=== PATIENT | female | born 1985 ===

== ENCOUNTER → 2021-05-08 09:32 | Outpatient (CLI) | payer SELFPAY ==
[2021-05-08 12:01] LABS: Urine N gonorrhoeae NOT DETECTED
[2021-05-08 12:26] LABS: Urine Chlamydia NOT DETECTED
== END ==
PROVIDERS: Referring Provider Nurse Practitioner Family; Visit Provider Nurse Practitioner Family
DX: Z13.9 Encounter for screening, unspecified (principal); N34.3 Urethral syndrome, unspecified; N89.8 Other specified noninflammatory disorders of vagina
CPT/HCPCS: 87086; 87210; 87491; 87591

== ENCOUNTER → 2021-07-21 07:28 | Outpatient (CLI) | payer OTHER, SELFPAY ==
[2021-07-21 07:58] LABS: COVID19 -Nasal RAPID Negative (Negative)
== END ==
PROVIDERS: Visit Provider Nurse Practitioner Family
DX: Z20.822 Contact with and (suspected) exposure to COVID-19 (principal)
CPT/HCPCS: 87635

== ENCOUNTER → 2021-10-06 13:23 | Outpatient (CLI) | payer OTHER, SELFPAY ==
[2021-10-06 14:07] LABS: Bacteria Urine Occasional (0-1); RBC Urine 1-5/HPF (0-5/HPF); WBC Urine 0-1/HPF (0-5/HPF)
[2021-10-07 16:30] LABS: Appearance Urine UA CLEAR; Bilirubin Urine UA NEGATIVE (NEGATIVE); Color Urine UA YELLOW; Glucose Urine UA NEGATIVE (Negative); Ketones Urine UA NEGATIVE (NEGATIVE); Leukocyte Esterase Urine UA NEGATIVE (NEGATIVE); Nitrite Urine UA NEGATIVE (Negative); Occult Blood Urine UA NEGATIVE (Negative); Protein Urine UA NEGATIVE (Negative); Urobilinogen Urine UA 0.2 E.U./dL (0.2)
== END ==
PROVIDERS: PCP Obstetrics & Gynecology; Referring Provider Obstetrics & Gynecology; Visit Provider Obstetrics & Gynecology
DX: O26.893 Other specified pregnancy related conditions, third trimester (principal); R30.0 Dysuria
CPT/HCPCS: 81003; 81015; 87086

== ENCOUNTER → 2022-10-11 12:22 | Outpatient (CLI) | payer OTHER, MEDICAID, SELFPAY ==
--- NOTE | 2022-10-11 12:23 | DI.US.S_ITS ---
PROCEDURE: US OB <= 14 WEEKS FETUS INDICATIONS: DATES OUTSIDE/PRIOR DATING DATA: Last menstrual period (LMP): 07/30/2022. LMP-based estimated date of delivery (ARA): 05/06/2023. First dating scan (date and location): Today's exam. Estimated date of delivery (ARA) from first dating scan: 05/09/2023. The calculations are made using the clinical ARA of 05/06/2023. TECHNIQUE: Real-time scanning was performed of the fetus and maternal pelvic organs, with image documentation. COMPARISON: None. FINDINGS: Embryo: Present, pole measuring 3.2 cm, corresponding to 10 weeks 0 days. Heart rate: 163 beats per minute Maternal organs: Ovaries not visualized due to overlying bowel gas. IMPRESSION: Single living intrauterine at 10 weeks 0 days, ARA of 05/09/2023. Dating is concordant with clinical dating. We strive to produce accurate, complete, and clear reports of imaging services. To assist us in improving patient care, this report was composed using standard report templates and voice recognition software. Therefore, it may contain abnormal punctuation, insertions and/or omissions. Occasional wrong-word or sound-alike substitutions may occur. Though we review the report and make efforts to correct it, we do recommend that the report be read carefully in proper context to recognize any text inaccuracies. Dictated by: Vernon Kuo M.D. on 10/11/2022 at 13:27 Approved by: Vernon Kuo M.D. on 10/11/2022 at 13:28
== END ==
PROVIDERS: PCP Obstetrics & Gynecology; Referring Provider Obstetrics & Gynecology; Visit Provider Obstetrics & Gynecology
DX: Z34.81 Encounter for supervision of other normal pregnancy, first trimester (principal); Z3A.10 10 weeks gestation of pregnancy
CPT/HCPCS: 76801

== ENCOUNTER → 2022-10-25 10:54 | Outpatient (CLI) | payer OTHER, MEDICAID, SELFPAY ==
[2022-10-25 12:51] LABS: Add Manual Diff / Slide Review NO; Basophils Absolute Auto 0 /uL (0-100); Basophils Percent Auto 0.2 % (0-2); Eosinophils Absolute Auto 100 /uL (0-450); Eosinophils Percent Auto 0.7 % (2-4); Hematocrit 35.7 % (36-46); Hemoglobin 12.3 g/dL (12.0-16.0); Lymphocytes Absolute Auto 2900 /uL (1100-4500); Lymphocytes Percent Auto 34.6 % (25-40); Mean Corpuscular HGB Conc 34.5 % (30-36); Mean Corpuscular Hemoglobin 32.1 PG (26-34); Monocytes Absolute Auto 400 /uL (0-900); Monocytes Percent Auto 5.4 % (3-14); Neutrophils Absolute Auto 4900 /uL (1500-7000); Neutrophils Percent Auto 59.1 % (50-75); Platelet Count 218 X10^3/uL (150-400); Red Blood Cell Count 3.83 X10^6/uL (4.0-5.2); Red Cell Distribution Width 13.6 % (11.6-14.8); White Blood Cell Count 8.4 X10^3/uL (4.5-11.0)
[2022-10-25 14:32] LABS: Urine N gonorrhoeae NOT DETECTED
[2022-10-25 14:33] LABS: Urine Chlamydia NOT DETECTED
[2022-10-26 04:10] LABS: RPR Screen Non Reactive (Non Reactive)
[2022-10-26 11:10] LABS: Varicella IgG Antibody 1385 index (Immune >165)
[2022-10-26 18:09] LABS: Hepatitis B Surface Antigen NEGATIVE s/c (NEGATIVE); Rubella Antibody IgG 14.8 IU/mL (>15)
[2022-10-26 18:52] LABS: HIV 1 & 2 Ab/Ag 4th Gen Combo NEGATIVE (NEGATIVE); Hep C Virus Ab w/Reflex Quant NEGATIVE s/c (NEGATIVE)
[2022-10-27 08:03] LABS: Miscellaneous to LabCorp NATERA KIT
== END ==
PROVIDERS: PCP Student in an Organized Health Care Education/Training Program; Referring Provider Obstetrics & Gynecology; Visit Provider Obstetrics & Gynecology
DX: O09.521 Supervision of elderly multigravida, first trimester (principal); Z3A.12 12 weeks gestation of pregnancy
CPT/HCPCS: 36415; 80055; 86787; 86803; 86850; 86900; 86901; 87086; 87389; 87491; 87591

== ENCOUNTER → 2022-11-30 10:02 | Outpatient (CLI) | payer OTHER, MEDICAID, SELFPAY ==
[2022-12-02 18:42] LABS: Gest Age on Col Date 17.6 weeks (.); Insulin Dep Diabetes No (.); OSBR Risk 1IN 10000 (.); Results Report (.); Test Results *Screen Negative* (.)
== END ==
PROVIDERS: PCP Student in an Organized Health Care Education/Training Program; Referring Provider Obstetrics & Gynecology; Visit Provider Obstetrics & Gynecology
DX: Z34.81 Encounter for supervision of other normal pregnancy, first trimester (principal); Z3A.17 17 weeks gestation of pregnancy
CPT/HCPCS: 36415; 82105

== ENCOUNTER → 2022-12-08 12:16 | Outpatient (CLI) | payer OTHER, MEDICAID, SELFPAY ==
--- NOTE | 2022-12-08 12:17 | DI.US.S_ITS ---
PROCEDURE: US OB LIMITED INDICATIONS: ABDOMINAL PAIN, LEFT SIDED UTERINE PAIN OUTSIDE/PRIOR DATING DATA: Last menstrual period (LMP): 07/30/2022. LMP-based estimated date of delivery (ARA): 05/06/2023. First dating scan (date and location): 10/11/2022. Estimated date of delivery (ARA) from first dating scan: 05/09/2023. TECHNIQUE: Real-time scanning was performed of the fetus, with image documentation and biometric measurements. Endovaginal scanning: Not performed COMPARISON: [facility], , US OB <= 14 WEEKS FETUS, 10/11/2022, 12:28. FINDINGS: General: A single living intrauterine gestation is present. Presentation: Variable. Placenta: Placental position is fundal/posterior , without previa. Amniotic fluid index: 14.3 cm, normal range is 5-24 cm. Single deepest vertical pocket is 4.2 cm. heart rate: 160 beats per minute. Maternal cervical canal: 4.7 cm long. Normal lower limit is 2.5 cm. biometrics: Biparietal diameter: 4.3 centimeters 19 weeks 1 day Head circumference: 15.2 centimeters 18 weeks 1 day Abdominal circumference: 13.8 centimeters 18 weeks 1 day Femur length: 2.8 centimeters 18 weeks 4 days estimated gestational age: 18 weeks 5 days Composite gestational age from present scan: 18 weeks 5 days Estimated weight and percentile: 260 grams, 53rd percentile Other: Focal thickening of the anterior uterine wall, measured on grayscale images with dimensions of 5.6 x 3.3 x 4.0 centimeters. Internal vascularity present on Doppler images. IMPRESSION: 1. Single living intrauterine . 2. Cervix is long and closed. Amniotic fluid index of 14.3 centimeters. 3. Focal thickening of the anterior uterine wall may represent a uterine contraction, but was not observed to resolve during the examination. A fibroid could appear similarly, however this finding was not identified on the 1st trimester comparison exam. Clinical correlation for placental abruption may be helpful, however presence of internal vascularity within this finding makes etiologies such as clot less likely and the finding appears largely distant from the placenta on provided images. Imaging follow-up could be obtained as clinically indicated. We strive to produce accurate, complete, and clear reports of imaging services. To assist us in improving patient care, this report was composed using standard report templates and voice recognition software. Therefore, it may contain abnormal punctuation, insertions and/or omissions. Occasional wrong-word or sound-alike substitutions may occur. Though we review the report and make efforts to correct it, we do recommend that the report be read carefully in proper context to recognize any text inaccuracies. Dictated by: Margarito Dorsey M.D. on 12/08/2022 at 15:00 Approved by: Margarito Dorsey M.D. on 12/08/2022 at 15:14
== END ==
PROVIDERS: PCP Student in an Organized Health Care Education/Training Program; Referring Provider Obstetrics & Gynecology; Visit Provider Obstetrics & Gynecology
DX: O99.891 Other specified diseases and conditions complicating pregnancy (principal); R10.9 Unspecified abdominal pain; Z3A.18 18 weeks gestation of pregnancy
CPT/HCPCS: 76815

== ENCOUNTER → 2022-12-20 10:26 | Outpatient (CLI) | payer OTHER, MEDICAID, SELFPAY ==
--- NOTE | 2022-12-20 10:26 | DI.US.S_ITS ---
PROCEDURE: US OB >= 14 WEEKS FETUS INDICATIONS: 20 week anatomy scan OUTSIDE/PRIOR DATING DATA: Last menstrual period (LMP): 07/30/2022. LMP-based estimated date of delivery (ARA): 05/06/2023. First dating scan (date and location): 10/11/2022. Estimated date of delivery (ARA) from first dating scan: 05/09/2023. The calculations are made using the working ARA of 05/09/2023. TECHNIQUE: Real-time scanning was performed of the fetus, with image documentation and biometric measurements. COMPARISON: [facility], OB LIMITED, 12/08/2022, 12:32. [facility], OB <= 14 WEEKS FETUS, 10/11/2022, 12:28. FINDINGS: General: A single living intrauterine gestation is present. Presentation: Breech. Placenta: Placental position is posterior fundal , without previa. Amniotic fluid index: 13.5 cm, normal range is 5-24 cm. Single deepest vertical pocket is 6.5 cm. heart rate: 158 beats per minute. Maternal cervical canal: 4.2 cm long. Normal lower limit is 2.5 cm. There is a 5.1 x 4.6 x 4.5 cm fibroid in the anterior uterine wall. biometrics: Biparietal diameter: 20 weeks 0 day Head circumference: 20 weeks 1 day Abdominal circumference: 19 weeks 5 days Femur length: 20 weeks 1 day Clinically estimated gestational age: 20 weeks 3 days Composite gestational age from present scan: 20 weeks 0 day Estimated weight and percentile: 320 g; 20%. Anatomic survey: Neuro: Ventricles are non-dilated at less than 10 mm. Cisterna magna is normal at 3-11 mm. Cerebellum is normal in size and morphology. Nuchal skin fold: Normal at less than 6 mm between 14-21 weeks gestational age. Face: Nose and lips, facial profile are normal. Spine: No evidence for spina bifida. Heart: 4-chambered heart is present, with normal ventricular outflow tracts. Diaphragm: Diaphragm is intact. Stomach: Left-sided stomach is present. Kidneys: No hydronephrosis. Normal is less than 5 mm in 2nd trimester, less than 7 mm in 3rd trimester. Cord: 3-vessel cord has orthotopic insertion. Bladder: Normal in size. Extremities: All 4 extremities identified. IMPRESSION: 1. A single living intrauterine gestation with appropriate interval growth. 2. Normal anatomic survey. 3. A 5.1 x 4.6 x 4.5 cm uterine fibroid in the anterior uterine wall. We strive to produce accurate, complete, and clear reports of imaging services. To assist us in improving patient care, this report was composed using standard report templates and voice recognition software. Therefore, it may contain abnormal punctuation, insertions and/or omissions. Occasional wrong-word or sound-alike substitutions may occur. Though we review the report and make efforts to correct it, we do recommend that the report be read carefully in proper context to recognize any text inaccuracies. Dictated by: Bhupinder Dale M.D. on 12/22/2022 at 12:13 Approved by: Bhupinder Dale M.D. on 12/22/2022 at 12:19
== END ==
PROVIDERS: PCP Student in an Organized Health Care Education/Training Program; Referring Provider Obstetrics & Gynecology; Visit Provider Obstetrics & Gynecology
DX: O34.12 Maternal care for benign tumor of corpus uteri, second trimester (principal); D25.9 Leiomyoma of uterus, unspecified; Z3A.20 20 weeks gestation of pregnancy
CPT/HCPCS: 76811

== ENCOUNTER → 2023-01-24 08:27 | Outpatient (CLI) | payer OTHER, MEDICAID, SELFPAY ==
[2023-01-24 11:03] LABS: Hematocrit 32.5 % (36-46); Hemoglobin 11.6 g/dL (12.0-16.0)
[2023-01-24 11:33] LABS: GTT (PREG) 1 Hour PP 50gm Dose 107 mg/dL (76-139)
== END ==
PROVIDERS: PCP Student in an Organized Health Care Education/Training Program; Referring Provider Obstetrics & Gynecology; Visit Provider Obstetrics & Gynecology
DX: Z3A.25 25 weeks gestation of pregnancy (principal); Z34.82 Encounter for supervision of other normal pregnancy, second trimester
CPT/HCPCS: 36415; 82950; 85014; 85018

== ENCOUNTER 2023-03-29 09:13 | Outpatient (CLI) | payer OTHER, MEDICAID, SELFPAY ==
--- NOTE | 2023-03-29 10:06 | PM.OBTRLD ---
Visit Information Visit Information Date of evaluation: 03/29/23 Primary OB Provider: Xavi De La O On-call OB Provider: Tiffany Rosario Reason for Evaluation: Yes non-stress test non-stress test reason: other (advanced maternal age) [facility] Medical History (Updated 03/29/23 @ 10:08 by Tiffany Rosario MD) Alopecia Breast implant in situ Cataracts, bilateral Genital herpes Vaginal discharge during Surgical History (Updated 10/11/22 @ 08:16 by Dania Chavez, RN) H/O foot surgery Family History (Updated 10/11/22 @ 08:19 by Dania Chavez, RN) Father Diabetes mellitus Kidney failure Grandmother Diabetes mellitus Family/Other Diabetes mellitus Mother Adopted Osteoporosis Social History marital status: unmarried,single household members: family (mother) lives independently: Yes caregiver/support person: Yes housing: house pets and animals: Yes (1 cat, pt doesn't manage litter box) education level: high school occupational status: unemployed current occupational exposures/hazards: No special [place] needs: No travel history: over 6 months ago seatbelt use: always water heater temp set < 120 deg: Yes working smoke detector in home: Yes fire extinguisher in home: Yes carbon monox detector in home: Yes firearms in home: Yes firearms unloaded and locked: Yes do you feel safe at home: Yes Smoking Status: Never smoker second hand exposure: No alcohol intake: former (2-4/week on weekends, but not since before previous ) substance use type: does not use during the past year weight has: other (Pt just had a baby 10 months ago, still ~15-20# above pre-baby weight) well-balanced diet: about half the time daily servings fruits/ve-4 caffeine: No Type(s) of exercise: none and walking (sporadically ) Evaluation Evaluation Baseline heart rate: 130 Variability: Moderate (11-25) monitor accelerations: Present Monitor Decelerations: Absent Contraction Frequency (minutes): 0 Status: Category l Diagnosis, Plan/Disposition Final Diagnosis (1) Advanced maternal age (AMA) in : Status: Acute (2) 34 weeks gestation of : Status: Acute Plan/Disposition Plan: Advanced maternal age at 34 weeks 4 days with reactive nonstress test. Weekly visits and nonstress test. OB Disposition: home
== END 2023-03-29 10:05 | disposition home or self-care (01) ==
LOC: LABOR 10:15 → OB 04-11 08:05
PROVIDERS: Referring Provider Specialist; Visit Provider Specialist
DX: O09.523 Supervision of elderly multigravida, third trimester (principal); Z3A.34 34 weeks gestation of pregnancy
CPT/HCPCS: 59025; G0378; G0379

== ENCOUNTER 2023-04-05 10:26 | Outpatient (CLI) | payer OTHER, MEDICAID, SELFPAY ==
--- NOTE | 2023-04-05 11:35 | PM.OBTRLD ---
Visit Information Visit Information Date of evaluation: 04/05/23 On-call OB Provider: La Garcia Reason for Evaluation: Yes non-stress test Comments/Additional reasons for admission: AMA Vital Signs Vital Signs: BP 106/65, HR 82, T 36.3 PFSH Medical History Alopecia Breast implant in situ Cataracts, bilateral Genital herpes Vaginal discharge during Surgical History H/O foot surgery Family History Father Diabetes mellitus Kidney failure Grandmother Diabetes mellitus Family/Other Diabetes mellitus Mother Adopted Osteoporosis Social History marital status: unmarried,single household members: family (mother) lives independently: Yes caregiver/support person: Yes housing: house pets and animals: Yes (1 cat, pt doesn't manage litter box) education level: high school occupational status: unemployed current occupational exposures/hazards: No special [place] needs: No travel history: over 6 months ago seatbelt use: always water heater temp set < 120 deg: Yes working smoke detector in home: Yes fire extinguisher in home: Yes carbon monox detector in home: Yes firearms in home: Yes firearms unloaded and locked: Yes do you feel safe at home: Yes Smoking Status: Never smoker second hand exposure: No alcohol intake: former (2-4/week on weekends, but not since before previous ) substance use type: does not use during the past year weight has: other (Pt just had a baby 10 months ago, still ~15-20# above pre-baby weight) well-balanced diet: about half the time daily servings fruits/ve-4 caffeine: No Type(s) of exercise: none and walking (sporadically ) Review of Systems Review of Systems ROS: Yes All systems reviewed with the patient and are negative except as otherwise documented Evaluation Evaluation Baseline heart rate: 145 Variability: Moderate (11-25) monitor accelerations: Present Monitor Decelerations: Absent Contraction Frequency (minutes): 0 Category of Tracing: Reactive Diagnosis, Plan/Disposition Final Diagnosis (1) 35 weeks gestation of : Status: Acute (2) Advanced maternal age (AMA) in : Status: Acute Plan/Disposition Plan: 37yo at 35+4wks presenting for scheduled NST due to AMA. Tracing reviewed, reactive. -pt to f/u in clinic as scheduled OB Disposition: home
== END 2023-04-05 11:10 | disposition home or self-care (01) ==
LOC: OB 04-11 08:01
PROVIDERS: Referring Provider Obstetrics & Gynecology; Visit Provider Obstetrics & Gynecology
DX: O09.523 Supervision of elderly multigravida, third trimester (principal); Z3A.35 35 weeks gestation of pregnancy
CPT/HCPCS: 59025; G0378; G0379

== ENCOUNTER 2023-04-12 14:20 | Outpatient (CLI) | payer OTHER, MEDICAID, SELFPAY ==
--- NOTE | 2023-04-12 16:47 | P.TNLD_ITS ---
Visit Information Visit Information Date of evaluation: 03/12/23 Primary OB Provider: Xavi De La O On-call OB Provider: Elsy Jackson Reason for Evaluation: Yes non-stress test [facility] Medical History Alopecia Breast implant in situ Cataracts, bilateral Genital herpes Vaginal discharge during Surgical History H/O foot surgery Family History Father Diabetes mellitus Kidney failure Grandmother Diabetes mellitus Family/Other Diabetes mellitus Mother Adopted Osteoporosis Social History marital status: unmarried,single household members: family (mother) lives independently: Yes caregiver/support person: Yes housing: house pets and animals: Yes (1 cat, pt doesn't manage litter box) education level: high school occupational status: unemployed current occupational exposures/hazards: No special [place] needs: No travel history: over 6 months ago seatbelt use: always water heater temp set < 120 deg: Yes working smoke detector in home: Yes fire extinguisher in home: Yes carbon monox detector in home: Yes firearms in home: Yes firearms unloaded and locked: Yes do you feel safe at home: Yes Smoking Status: Never smoker second hand exposure: No alcohol intake: former (2-4/week on weekends, but not since before previous ) substance use type: does not use during the past year weight has: other (Pt just had a baby 10 months ago, still ~15-20# above pre-baby weight) well-balanced diet: about half the time daily servings fruits/ve-4 caffeine: No Type(s) of exercise: none and walking (sporadically ) Diagnosis, Plan/Disposition Plan/Disposition Plan: 37yo at 36.4w presenting for scheduled NST for AMA. EFM: 130s, moderate variability, positive 15x15 accelerations, no decelerations [place]: irregular contractions q4m (not appreciated by patient) NST reactive/Cat 1 Performed and read 04/12/23 37yo at 36.4w with AMA - NST reactive - Discharge to home, follow up as scheduled OB Disposition: home
== END 2023-04-12 14:58 | disposition home or self-care (01) ==
LOC: LABOR 14:44 → OB 04-18 12:55
PROVIDERS: Referring Provider Obstetrics & Gynecology; Visit Provider Obstetrics & Gynecology
DX: O09.523 Supervision of elderly multigravida, third trimester (principal); Z3A.36 36 weeks gestation of pregnancy; Z34.83 Encounter for supervision of other normal pregnancy, third trimester
CPT/HCPCS: 59025; 87653; G0378; G0379

== ENCOUNTER → 2023-04-12 14:35 | Outpatient (CLI) | payer OTHER, MEDICAID, SELFPAY ==
[2023-04-13 12:58] LABS: Strep Grp B PCR NEG for Grp B Strep
== END ==
PROVIDERS: Visit Provider Physician Assistant Medical
DX: Z34.83 Encounter for supervision of other normal pregnancy, third trimester (principal); Z3A.36 36 weeks gestation of pregnancy
CPT/HCPCS: 87653

== ENCOUNTER 2023-04-19 11:19 | Outpatient (CLI) | payer OTHER, MEDICAID, SELFPAY ==
--- NOTE | 2023-04-19 12:14 | PM.OBTRLD ---
Visit Information Visit Information Date of evaluation: 04/19/23 Primary OB Provider: Xavi De La O On-call OB Provider: Elsy Jackson Reason for Evaluation: Yes non-stress test PFSH Medical History Alopecia Breast implant in situ Cataracts, bilateral Genital herpes Vaginal discharge during Surgical History H/O foot surgery Family History Father Diabetes mellitus Kidney failure Grandmother Diabetes mellitus Family/Other Diabetes mellitus Mother Adopted Osteoporosis Social History marital status: unmarried,single household members: family (mother) lives independently: Yes caregiver/support person: Yes housing: house pets and animals: Yes (1 cat, pt doesn't manage litter box) education level: high school occupational status: unemployed current occupational exposures/hazards: No special [place] needs: No travel history: over 6 months ago seatbelt use: always water heater temp set < 120 deg: Yes working smoke detector in home: Yes fire extinguisher in home: Yes carbon monox detector in home: Yes firearms in home: Yes firearms unloaded and locked: Yes do you feel safe at home: Yes Smoking Status: Never smoker second hand exposure: No alcohol intake: former (2-4/week on weekends, but not since before previous ) substance use type: does not use during the past year weight has: other (Pt just had a baby 10 months ago, still ~15-20# above pre-baby weight) well-balanced diet: about half the time daily servings fruits/ve-4 caffeine: No Type(s) of exercise: none and walking (sporadically ) Evaluation Evaluation Baseline heart rate: 130 Variability: Moderate (11-25) monitor accelerations: Present (15x15) Monitor Decelerations: Absent Contraction Frequency (minutes): 2 Uterine Contraction Intensity: Mild Category of Tracing: Reactive Status: Category l Diagnosis, Plan/Disposition Plan/Disposition Plan: 37yo at 37.4w presenting for scheduled NST for AMA - NST reactive - Follow up as scheduled OB Disposition: home
== END 2023-04-19 12:18 | disposition home or self-care (01) ==
LOC: OB 04-23 10:00
PROVIDERS: Referring Provider Obstetrics & Gynecology; Visit Provider Obstetrics & Gynecology
DX: O09.523 Supervision of elderly multigravida, third trimester (principal); Z3A.37 37 weeks gestation of pregnancy
CPT/HCPCS: 59025; G0378; G0379

== ENCOUNTER 2023-04-25 12:23 | Outpatient (CLI) | payer OTHER, MEDICAID, SELFPAY | END 2023-04-25 13:10 | disposition home or self-care (01) | LOC: LABOR 12:36 → OB 04-26 16:56 | PROVIDERS: Referring Provider Obstetrics & Gynecology; Visit Provider Obstetrics & Gynecology | DX: O09.523 Supervision of elderly multigravida, third trimester (principal); O47.1 False labor at or after 37 completed weeks of gestation; Z3A.38 38 weeks gestation of pregnancy | CPT/HCPCS: 59025; G0378; G0379 ==

== ENCOUNTER 2023-05-03 13:44 | Observation (INO) | payer OTHER, MEDICAID, SELFPAY | END 2023-05-03 14:25 | disposition home or self-care (01) | LOC: LABOR 13:45 | PROVIDERS: Admitting Provider Obstetrics & Gynecology; Referring Provider Obstetrics & Gynecology; Visit Provider Obstetrics & Gynecology | DX: O09.523 Supervision of elderly multigravida, third trimester (principal); O47.1 False labor at or after 37 completed weeks of gestation; Z3A.39 39 weeks gestation of pregnancy | CPT/HCPCS: 59025; G0378; G0379 ==

== ENCOUNTER 2023-05-03 19:03 | Inpatient (IN) | payer OTHER, MEDICAID, SELFPAY ==
[2023-05-03] MEDS: miSOPROStoL 25 MCG TABLET 50 MCG PO (20:36)
[2023-05-03 20:37] LABS: Add Manual Diff / Slide Review NO; Basophils Absolute Auto 0 /uL (0-100); Basophils Percent Auto 0.2 % (0-2); Eosinophils Absolute Auto 100 /uL (0-450); Eosinophils Percent Auto 0.5 % (2-4); Hematocrit 33.3 % (36-46); Hemoglobin 11.9 g/dL (12.0-16.0); Lymphocytes Absolute Auto 2400 /uL (1100-4500); Lymphocytes Percent Auto 21.5 % (25-40); Mean Corpuscular HGB Conc 35.8 % (30-36); Mean Corpuscular Hemoglobin 34.5 PG (26-34); Mean Corpuscular Volume 96.5 fL (80-100); Monocytes Absolute Auto 600 /uL (0-900); Monocytes Percent Auto 5.4 % (3-14); Neutrophils Absolute Auto 8200 /uL (1500-7000); Neutrophils Percent Auto 72.4 % (50-75); Platelet Count 180 X10^3/uL (150-400); Red Blood Cell Count 3.45 X10^6/uL (4.0-5.2); Red Cell Distribution Width 13.5 % (11.6-14.8); White Blood Cell Count 11.3 X10^3/uL (4.5-11.0)
[2023-05-03 21:35] VITALS: BP 105/70
[2023-05-04] MEDS: miSOPROStoL 25 MCG TABLET 50 MCG PO (02:03)
[2023-05-04] MEDS: FENT 2MCG/ML BUPIV 0.1% EPI 200 MCG/100 ML PLAST..BAG 8 MCG EPIDURAL ×2 (09:45→14:55)
[2023-05-04] MEDS: valACYclovir 500 MG TABLET PO ×2 (09:49→20:49)
--- NOTE | 2023-05-04 09:53 | PM.AN.REGBLK ---
[facility] Pre-procedure Procedure: Continuous Lumbar Epidural for L&D PMH/ROS narrative: active labor PSH/Anesthesia history narrative: epidural x 1. one sided, otherwise no issues. Labs: Hct 33.3 % (36-46) L 05/03/23 20:00 Plt Count 180 X10^3/uL (150-400) 05/03/23 20:00 Medications: Current Medications Generic Name Dose Route Start Last Admin Trade Name Freq PRN Reason Stop Dose Admin Calcium Carbonate 1,000 mg 05/03/23 19:24 Calcium Carbonate 500 Mg Tab PO Q4HR PRN Dyspepsia Carboprost Tromethamine 250 mcg 05/03/23 19:24 Carboprost 250 Mcg/Ml Ampul IM Q90M PRN Bleeding Oxytocin/Lactated Ringer's 30 unit in 500 mls @ 200 mls/hr 05/03/23 19:24 Oxytocin Premix IV CONT PRN Bleeding Protocol Lactated Ringer's 1,000 mls @ 100 mls/hr 05/03/23 19:30 Lactated Ringers IV CONT FRANCESCO Tranexamic Acid 1,000 mg/ 100 mls @ 200 mls/hr 05/03/23 19:24 Sodium Chloride IV NOW PRN Bleeding Lidocaine HCl 20 ml 05/03/23 19:24 Lidocaine 1% 20 Ml INJ INTRA-OP PRN Post Delivery Methylergonovine Maleate 0.2 mg 05/03/23 19:24 Methylergonovine 0.2 Mg/Ml Vial IM NOW PRN Bleeding Methylergonovine Maleate 0.2 mg 05/03/23 19:24 Methylergonovine 0.2 Mg Tablet PO Q6HR PRN Heavy Bleeding Misoprostol 400 mcg 05/03/23 19:24 Misoprostol 200 Mcg Tablet SL NOW PRN Bleeding Misoprostol 800 mcg 05/03/23 19:24 Misoprostol 200 Mcg Tablet AK NOW PRN Bleeding Misoprostol 50 mcg 05/03/23 19:30 05/04/23 02:03 Misoprostol 25 Mcg Tablet PO 50 mcg Q6H FRANCESCO Administration Naloxone HCl 0.2 mg 05/03/23 19:24 Naloxone 0.4 Mg/Ml Vial IV Q2MIN PRN Opiate Reversal Ondansetron HCl 4 mg 05/03/23 19:24 Ondansetron 4 Mg/2 Ml Inj IV Q4HR PRN Nausea And Vomiting Oxytocin 10 unit 05/03/23 19:24 Oxytocin 10 Unit/Ml Vial IM NOW PRN Bleeding Valacyclovir HCl 500 mg 05/03/23 21:00 05/04/23 09:49 Valacyclovir 500 Mg Tablet PO 500 mg BID FRANCESCO Administration Zolpidem Tartrate 5 mg 05/03/23 19:24 Zolpidem 5 Mg Tablet PO BEDTIME PRN Sleep Allergies: Allergies Allergy/AdvReac Type Severity Reaction Status Date / Time codeine Allergy Intermediate Hives Verified 05/03/23 13:19 Procedure Insertion date: 05/04/23 Insertion time: 09:38 Prep/Local: betadine x3 Interspace: l3 l4 Needle: 17 gauge Tuohy Loss of resistance with: saline SYLVIA at (cm): 6 Catheter placed at SKIN (cm): 12 Sensory level: t8 Initial Medications TEST DOSE time: :38 TEST DOSE: 1.5% lidocaine with epinephrine 1:200k (mL): 3 BOLUS DOSE time: 09:46 BOLUS DOSE (mL): 4 BOLUS DOSE med: 0.125% bupivacaine with fentanyl 10 mcg/mL (2 mcg fent) Infusion INFUSION: 0.125% bupivacaine and with fentanyl 2 mcg/mL Initial rate (mL/hr): 8 Post-procedure Anesthesia time START: 09:25 Anesthesia time END: 14:35 Post-procedure Anesthesia Assessment: Yes CV function: HR/BP stable, Yes Resp function: RR/sat/airway adequate, Yes Post-op hydration adequate, Yes Pain control adequate, Yes Nausea & vomiting absent, Yes Temperature > 36 C, Yes Mental status appropriate and Yes Anesthesia complications
[2023-05-04] MEDS: ONDANSETRON 4 MG/2 ML INJ IV (10:16)
--- NOTE | 2023-05-04 11:19 | PM.OBPNLAB ---
Date/Time Date Patient Seen: 05/04/23 Time Patient Seen: 11:19 Pain Control Pain control: tolerating well and epidural Pelvic Exam Dilation (cm): 8 Effacement (%): 100 station: 0 Amniotic membrane status: Ruptured (AROM performed @ 11:15, clear fluid) Contractions Contractions on admission: none Monitor mode: External Contraction pattern: Irregular Contraction phase: Resting Contraction intensity: Moderate Status status: Category l Heart Rate Baseline: 140 Monitor Accelerations: Present Monitor Decelerations: Absent Monitor Variability: Moderate Assessment and Plan Assessment: induction ongoing Plan: begin patient augmentation Comments: AROM performed and will initiate augmentation to facilitate timely delivery
[2023-05-04] MEDS: OXYTOCIN PREMIX 30 UNIT/500 ML PLAST..BAG 200 UNIT IV (11:21)
--- NOTE | 2023-05-04 15:02 | PM.OBPRVD ---
Labor & Delivery Delivery date: 05/04/23 Cervical ripening method: per misoprostal protocol Induction method: per pitocin protocol Delivery augmentation: rupture of membranes Delivery monitor: external FHT and external uterine Route of delivery: Episiotomy description: None L&D Laceration Description: Perineal - 2nd Degree Delivery repair: chromic Estimated blood loss (mL): 150 Anesthesia Type: Epidural Complications: None Narrative: Following a 22 minute 2nd stage, the patient delivered spontaneously over an intact perineum a viable male infant with Apgars of 9/9 and a weight of 3965 g (8 lb 11.9 oz). No shoulder dystocia or cord entanglement was noted at time of delivery. Skin to skin contact was initiated immediately following delivery and delayed cord clamping was performed. Once the umbilical cord was doubly clamped and cut, a specimen was obtained for routine studies. The placenta was delivered easily with gentle cord traction and suprapubic countertraction. Inspection of the placenta showed it to be intact with a three-vessel cord inserting centrally. Intravenous Pitocin was initiated immediately after placental delivery and delivery losses were not excessive. Inspection of the perineum showed a second-degree perineal laceration which was closed with 2-0 chromic suture in the usual manner. Instrument and sponge count before and after the procedure was complete and accurate. Mother and infant were doing well at the conclusion of the delivery process. [place] Baby 1: gender: Male Presentation: vertex Position: Left Occiput Anterior Placenta delivery description: Spontaneous Cord Vessel Description: 3 Vessels score (1 min): 9 score (5 min): 9 weight: 8 lb 11.861 oz Plan for aftercare: Routine care
[2023-05-04] MEDS: ACETAMINOPHEN 325 MG TABLET 650 MG PO (18:23)
[2023-05-04] MEDS: IBUPROFEN 600 MG TABLET PO (18:23)
[2023-05-04] MEDS: DOCUSATE 100 MG CAPSULE PO (20:49)
[2023-05-05] MEDS: ACETAMINOPHEN 325 MG TABLET 650 MG PO ×3 (00:35→12:22)
[2023-05-05] MEDS: IBUPROFEN 600 MG TABLET PO ×3 (00:35→12:21)
[2023-05-05 06:43] LABS: Add Manual Diff / Slide Review NO; Basophils Absolute Auto 0 /uL (0-100); Basophils Percent Auto 0.3 % (0-2); Eosinophils Absolute Auto 100 /uL (0-450); Eosinophils Percent Auto 0.9 % (2-4); Hemoglobin 11.3 g/dL (12.0-16.0); Lymphocytes Absolute Auto 2800 /uL (1100-4500); Lymphocytes Percent Auto 24.1 % (25-40); Mean Corpuscular HGB Conc 35.3 % (30-36); Mean Corpuscular Hemoglobin 34.5 PG (26-34); Mean Corpuscular Volume 97.8 fL (80-100); Monocytes Absolute Auto 700 /uL (0-900); Monocytes Percent Auto 6.1 % (3-14); Neutrophils Absolute Auto 8100 /uL (1500-7000); Neutrophils Percent Auto 68.6 % (50-75); Platelet Count 163 X10^3/uL (150-400); Red Blood Cell Count 3.27 X10^6/uL (4.0-5.2); Red Cell Distribution Width 13.5 % (11.6-14.8); White Blood Cell Count 11.8 X10^3/uL (4.5-11.0)
--- NOTE | 2023-05-05 09:46 | P.DS_ITS ---
Discharge Providers Provider Date of admission: 05/03/23 19:03 Discharge Date: 05/05/23 Primary care physician: Doctor Alexsandra MD Consults: 05/03/23 19:24 Consult to Anesthesiology Urgent Comment: Consulting Provider: Xavi De La O Reason for consultation: Epidural Has provider been notified: No 05/05/23 14:58 Consult to Installation Drafter Routine Comment: Discharge provider: La Garcia DO Summary Hospital Course Date Patient Seen: 05/05/23 Time Patient Seen: 09:47 Diagnoses: Term hussein gestation, delivered via spontaneous vaginal delivery History of herpes simplex type 1 Advanced maternal age Hospital Course: 37 year old G2 now P2 status post uncomplicated vaginal delivery at 39+ 5 weeks. She is now day #1 and doing well. She denies any pain. Reports her vaginal bleeding is like a period. Her hospital course has been uncomplicated, and she is voiding spontaneously, tolerating regular diet, and ambulating without dizziness or lightheadedness. She is been afebrile. Thus she is appropriate for discharge today on day 1. Peripartum Data Delivery Method: Natural Vaginal Laceration Description: Perineal - 2nd Degree complications: none Status at Discharge Cognitive/behavioral status at discharge: oriented Functional status at discharge: independent ambulation Time Spent with Patient Time attestation: Total time spent providing and/or coordinating discharge services: Time spent: Less than 30 minutes Objective Labs 05/05/23 06:25 Labs: Laboratory Results - last 24 hr 05/05/23 06:25 WBC 11.8 H RBC 3.27 L Hgb 11.3 L Hct 32.0 L MCV 97.8 MCH 34.5 H MCHC 35.3 RDW 13.5 Plt Count 163 Neut % (Auto) 68.6 Lymph % (Auto) 24.1 L [place] % (Auto) 6.1 Eos % (Auto) 0.9 L Baso % (Auto) 0.3 Neut # (Auto) 8100 H Lymph # (Auto) 2800 [place] # (Auto) 700 Eos # (Auto) 100 Baso # (Auto) 0 Exam Vital Signs (past 8 hours): Vitals reviewed in obix, within normal parameters Const General: cooperative, healthy appearing and comfortable Resp Effort & Inspection: normal respiratory effort Skin General: no rashes or lesions noted Extrem General: normal to inspection Psych Mood: congruent mood Affect: normal affect Discharge Plan Discharge Plan Patient Disposition: Home Provider Discharge Comment: Take ibuprofen and/or Tylenol as needed for pain Discharge orders & Medications Prescriptions: Continued vitamins PO Calcium PO ascorbic acid (vitamin C) 1,000 mg capsule 1 g PO DAILY valacyclovir [Valtrex] 500 mg tablet 500 mg PO DAILY Qty: 90 0RF Follow up/Referrals: Xavi De La O MD [Physician] - ( Appt w/ Dr. De La O: @ 2pm) Activity Restrictions/Additional Instructions: Nothing in the vagina for 6 weeks. Diet/Activity/Treatments Diet: Diet as Tolerated Activity: Activity as tolerated. Skin/Wound/Dressing Care Report to your healthcare provider any signs of infection, such as:: chills, fever, increased pain, unusual drainage and unusual redness Visit Report/Discharge Packet Instructions: Pre-eclampsia, Hemorrhage Stand Alone Forms: Discharge: Care, Patient Portal/API, Stroke Signs & Symptoms Discharge Data Primary Care Provider: Miscellaneous,Doctor
[2023-05-05] MEDS: valACYclovir 500 MG TABLET PO (12:56)
[2023-05-05 16:19] VITALS: BP 98/61; PULSE 70; RESP 12; TEMP 37.1
== END 2023-05-05 16:50 | disposition home or self-care (01) | DRG 560 ==
PROVIDERS: Admitting Provider Obstetrics & Gynecology; Referring Provider Obstetrics & Gynecology; Visit Provider Obstetrics & Gynecology
DX: O98.32 Other infections with a predominantly sexual mode of transmission complicating childbirth (principal); A60.9 Anogenital herpesviral infection, unspecified; O70.1 Second degree perineal laceration during delivery; Z3A.39 39 weeks gestation of pregnancy; Z37.0 Single live birth
CPT/HCPCS: 36415; 59025; 59050; 59200; 59409; 85025; 86850; 86900; 86901; G0378; G0379; J2405; J2590

== ENCOUNTER → 2024-10-07 15:22 | Outpatient (CLI) | payer OTHER, SELFPAY | PROVIDERS: Visit Provider Physician Assistant Surgical | DX: R30.0 Dysuria (principal); R10.9 Unspecified abdominal pain | CPT/HCPCS: 87077; 87086; 87186 ==